=== PATIENT | male | born 1990 | race Caucasian/White ===

== ENCOUNTER 2019-03-12 09:52 | Emergency (ER) | payer OTHER, SELFPAY ==
[2019-03-12 09:57] VITALS: BP 148/87; PULSE 88; RESP 16; TEMP 36.6; O2SAT 98
--- NOTE | 2019-03-12 10:13 | ED.GENADUL_ITS ---
Discharge Plan Disposition Patient Disposition: HOME Condition: Good Discharge Details Chief Complaint: Orthopedic Clinical Impression: Sprain of wrist, right Primary Care Provider: [facility] Provider: Belen Menendez Home Meds and New Rx's Prescriptions: No Action No Known Home Meds RF: 0 Discharge Instructions Instructions: Wrist Sprain (ED) Additional Instructions: Encourage rest, ice, elevation. Tylenol and ibuprofen as needed for discomfort. You may take 1000 mg of Tylenol every 6 hours as needed, 600 mg of Profen every 6 hours as needed. Please keep brace on while pain persists. If pain persists over the next 2 weeks please follow-up with primary care. If you develop new or worsening symptoms please seek care urgently once again. Stand Alone Forms: Work Release Discharge Data Discharge Date/Time-TO BE ENTERED AT DEPARTURE: 03/12/19 11:06 Medical Decision Making Patient is a 28-year-old [id number] male presents today with chief complaint of right wrist pain. He reports that yesterday, while pushing and pulling a pallet deepthi he had onset of discomfort on the ulnar side. Reports feeling a pop. However, it was not until after the cessation of his activity that he reports the pain greatly escalated. Reports that this was a work- related injury. States that this wrist has popped multiple times before but typically is not associated with continued pain. States that pain has persisted into today. Took Tylenol this morning. States that his work is very lifting intensive and that he is having difficulty performing his expected duties. On exam, I do not appreciate any swelling, ecchymosis, deformity. Wrist seems good range of motion, pain with palpation over the distal ulna. No ligamentous deficit is palpable. No snuffbox tenderness. Plan for imaging and augmentation with ibuprofen. If this is negative, will brace, encourage rice and discharged home with follow-up with primary if not improving. X-ray reviewed by myself and radiologist, no acute abnormalities are noted. Discussed these findings with the patient. Emelle wrist splint was applied. Encourage rest, ice, elevation. Advised follow-up if not improving in the next 1 to 2 weeks. All the questions and concerns were addressed and he is in agreement this plan. HPI General Mode of arrival: ambulatory . Date/Time Provider Initiated Documentation: 03/12/19 10:13 . Limitations to Documentation: no limitations . Information obtained by: patient, family and RN notes reviewed . History of Present Illness 28 year old M presents to the emergency department with the chief complaint of right wrist pain, described as moderate, Quality is described as aching, and is localized to the right and upper extremity. Patient reports no radiation. Patient started experiencing this day(s) (1) and it has been constant. Immobilization improves symptom(s), Movement worsens symptoms . Patient notes no other symptoms.. Patient did receive the following treatments prior to arrival, other (tylenol) Related Data Home Medications Medication Instructions Recorded Confirmed Unknown [No Known Home Meds] 03/12/19 03/12/19 Allergies Allergy/AdvReac Type Severity Reaction Status Date / Time cefaclor [From Ceclor] AdvReac Skin Rash Unverified 03/12/19 10:00 General Stated Complaint: Orthopedic ASH: 4 Review of Systems Constitutional Reports as per HPI, Denies chills, Denies fever(s), Denies headache(s) and Denies weakness ENT Denies headache(s) Cardiovascular Reports as per HPI Respiratory Reports as per HPI and Denies cough Musculoskeletal Reports as per HPI and Denies tingling Integumentary/Breasts Reports as per HPI, Denies rash and Denies wounds Neurologic Reports as per HPI, Denies headache(s), Denies tingling, Denies paresthesias and Denies weakness [facility] Social History Smoking/Tobacco Use Status: Never Alcohol Intake: never Substance use type: does not use Do you feel safe at home: Yes Do you feel safe in your relationship?: Yes Exam Const General: cooperative, healthy appearing, comfortable, no acute distress, well developed and well groomed Nutritional Appearance: average body habitus and well nourished Orientation: alert and awake Resp Effort & Inspection: normal respiratory effort, able to speak in complete sentences and no respiratory distress Cardio Rate: regular rate Rhythm: regular rhythm Skin General skin exam: scars (well healed incision consistent with repair of right boxer fracture) Lesions: no lesions Rashes: no rashes Trauma: no lacerations or abrasions Neuro General: alert and awake Cognition: normal cognition Speech: speech normal Gait: normal gait Motor: muscle tone normal throughout Sensory Exam: no sensory deficits noted and normal double simultaneous stimulation Extrem Right upper extremity: normal to inspection, full ROM, normal capillary refill, no joint enlargement, elbow/forearm Details: normal to inspection, normal ROM and distal pulses intact; no tenderness, no swelling, no ecchymosis, no crepitus and no deformity, wrist Details: normal to inspection, tenderness Location: of the distal ulna and of the dorsal wrist; not of the distal radius and not of the anatomic snuffbox, normal vascular exam and radial pulse present; no swelling, ROM abnormal, no unusual warmth, no abrasions, no lacerations, no ecchymosis, no crepitus and no deformity and hand Details: normal to inspection (wealed healed incision as above), normal capillary refill, neuromotor exam normal, neurosens ory exam normal (2 point intact), tendon exam normal, vascular exam Details: radial pulse present and normal capillary refill and normal ROM of fingers; no tenderness; no edema Psych Appearance: grossly normal and well kempt Mental Status: mental status grossly normal Speech and Movement: speech and movement normal Course Vital Signs Temperature 36.6 C 03/12/19 09:57 Pulse 88 03/12/19 09:57 Respiratory Rate 16 03/12/19 09:57 Blood Pressure 148/87 H 03/12/19 09:57 Pulse Oximetry 98 03/12/19 09:57 Temperature 36.6 C 03/12/19 09:57 Temperature Source Skin 03/12/19 09:57 Pulse 88 03/12/19 09:57 Respiratory Rate 16 03/12/19 09:57 Respiratory Effort Non-Labored 03/12/19 09:59 Blood Pressure 148/87 H 03/12/19 09:57 Blood Pressure Position Sitting 03/12/19 09:57 Pulse Oximetry 98 03/12/19 09:57 Oxygen Delivery Method Room Air 03/12/19 09:57 Oxygen Flow Rate 0 03/12/19 09:57 Pain Level 8 03/12/19 10:01 Comment 03/12/19 09:57
--- NOTE | 2019-03-12 10:32 | DI.RAD_ITS ---
SYMPTOM/DIAGNOSIS: TRAUMA RIGHT WRIST: No fracture or dislocation is seen. IMPRESSION: Negative right wrist.
[2019-03-12] MEDS: Ibuprofen 600 MG TAB PO (10:38)
[2019-03-12 11:06] VITALS: BP 148/87; PULSE 88; RESP 16; TEMP 36.6; O2SAT 98
== END 2019-03-12 11:06 | disposition home or self-care (01) ==
PROVIDERS: Emergency Provider Physician Assistant
DX: S63.501A Unspecified sprain of right wrist, initial encounter (principal); X50.9XXA Other and unspecified overexertion or strenuous movements or postures, initial encounter
CPT/HCPCS: 29125; 99283; 73110; L3908

== ENCOUNTER 2019-11-18 00:25 | Observation (INO) | payer MEDICAID, SELFPAY ==
[2019-11-18] VITALS (65 sets, daily range): BP systolic 109–158; BP diastolic 51–98; PULSE 65–114; RESP 11–27; TEMP 36.6; O2SAT 91–99
--- NOTE | 2019-11-18 | DI.MRI_ITS ---
EXAM: MR BRAIN WO/W CLINICAL HISTORY: occipital headache, diplopia. TECHNIQUE: Multiplanar multisequence MRI of the brain was performed. CONTRAST MATERIAL: IV Contrast: 20 ML of Dotarem contrast administered. COMPARISON: CT CT BRAIN NECK CTA from 11/18/2019 FINDINGS: VENTRICLES AND EXTRA AXIAL SPACES: Normal in size and morphology for the patient's age. HEMORRHAGE: None. CEREBRAL PARENCHYMA: No focus of restricted diffusion to suggest acute infarct. No space-occupying le dulce identified. MIDLINE SHIFT: None. BRAINSTEM/CEREBELLUM: Normal. CALVARIUM: Normal. ENHANCEMENT: No suspicious enhancement identified. The venous sinuses appear patent. VISUALIZED PARANASAL SINUSES/MASTOIDS: Mild mucous retention at the floors of the maxillary sinuses. Fluid in the inferior mastoid air cells. There is alberto bullosa of the left middle turbinate.. Orbits are unremarkable. Pituitary is normal in size. IMPRESSION: Mild chronic sinusitis and mild bilateral mastoid effusions. No acute abnormality.. DATA REPOSITORY:
--- NOTE | 2019-11-18 00:55 | ED.GENADUL_ITS ---
Discharge Plan Disposition Patient Disposition: [facility] INPATIENT Condition: Fair Discharge Details Chief Complaint: Headache Clinical Impression: Headache, Diplopia, Vertigo Primary Care Provider: Gato Astudillo ED Provider: Dionisio Blevins Home Meds and New Rx's Prescriptions: No Action No Known Home Meds RF: 0 Medical Decision Making Patient with acute onset of posterior headache with associated vertigo and diplopia. NIH stroke scale of 0 but has slight disconjugate gaze. Stroke alert called. Concern for vertebral artery dissection or posterior circulation stroke/bleed. IV established. Noncontrast head CT as well as CTA of head and neck ordered. Laboratory studies sent. Fluids and morphine ordered. 02:10 -patient feeling better on return from CT. Continues to be mildly hypertensive. Labs significant for potassium 2.6 which will be replaced IV. Neurologic exam is unchanged. Still has disconjugate gaze but extraocular muscles are intact. Still sees double. Otherwise still has an NIH scale of 0. Call placed to [facility] to discuss with neurology. Images sent. Preliminary read by radiology is negative noncontrast CT and normal CTA head and neck. 02:35 - Patient discussed with neuro team at [facility]. Images were available for them to review. No acute emergent intervention needed given negative CTA of head and neck. Recommend admission with neuro checks and MRI of the brain today. Specifically asked whether lumbar puncture or MRV indicated and these were both felt to not be necessary. Case discussed with hospitalist here. Patient seen by hospitalist here. Patient with double vision and slight misalignment of eyes for hospitalist. However, double vision persists in right eye with left eye closed. Double vision resolves with right eye closed. There is no evidence of right eye trauma. The pupils are equal and reactive. The extraocular muscles are intact without painful movement. There is no scleral or conjunctival injection. Visual acuity is 2025 in both eyes with near Snellen chart. Fairly decent view of the right fundi obtained by me and no obvious abnormalities. At this point unclear etiology of symptoms. 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 We will plan admission with neuro checks, MRI and hopefully neurology evaluation later today. I did speak to the patient's with his permission to give her an update in the plan. Patient continues to feel better in regards to pain. No new or changing neurologic symptoms. Lab Data Lab results reviewed: Yes I reviewed the patient's lab results. HPI General Mode of arrival: EMS . Date/Time Provider Initiated Documentation: 11/18/19 00:43 . Limitations to Documentation: no limitations . Information obtained by: patient and RN notes reviewed . HPI Narrative: Patient presents to ED with severe posterior headache. Patient reports that he went to bed around 22:00. He noted some posterior neck discomfort at that time but nothing else. Woke up at 2315 with worse neck pain, reflux, sharp stabbing pain in the back of the head, dizziness and double vision. He is able to ambulate but feels weak all over and unsteady. He took Tylenol without relief and called EMS. On arrival here reports continued dizziness and diplopia with stabbing pain in the back of his head and neck. He was given Zofran by EMS so his nausea and reflux is better. He has headaches but not frequently and nothing like this. Denies trauma. Denies illness. Denies past medical history or medications. Related Data Home Medications Medication Instructions Recorded Confirmed Unknown [No Known Home Meds] 03/12/19 11/18/19 Allergies Allergy/AdvReac Type Severity Reaction Status Date / Time cefaclor [From Ceclor] AdvReac Skin Rash Unverified 03/12/19 10:00 General Stated Complaint: Headache ASH: 3 Review of Systems Narrative: 04/26 Review of Systems completed and is negative except as stated above in HPI (Systems reviewed: Const, Eyes, ENT, Resp, CV, GI, , MSK, Skin, Neuro) PFSH Medical History Decreased hearing of left ear (Chronic) Surgical History No significant past surgical history (Acute) Social History Smoking/Tobacco Use Status: Never Alcohol Intake: never Substance use type: does not use Do you feel safe at home: Yes Do you feel safe in your relationship?: Yes Exam Narrative Exam Narrative: Vitals: Afebrile. Elevated blood pressure. Normal heart rate and room air pulse oximetry. Const: WDWN male who appear uncomfortable and diaphoretic. HEENT: NC/AT. Normal facial exam. Eyes: Normal conjunctiva and sclera. PERRL and EOMI. Mild dysconjugate gaze. No nystagmus. Reports diplopia with all gazes. Neck: Supple. Trachea midline. Lungs: Normal respiratory effort. Cor: Good radial pulses. GI: Soft. NT/ND. No guarding or rebound. Neuro: A+O x 3. Normal speech, mentation. Cranial nerves II - XII grossly intact (decreased hearing on left is chronic) No gross motor or sensory deficit. 5/5 strength. No ataxia. Normal FTN. Ext: No C/C/E. Skin: Cool, clammy, diaphoretic. Course Vital Signs Vital signs: Vital Signs Temperature 97.8 F 11/18/19 00:27 Pulse 87 11/18/19 00:27 Respiratory Rate 16 11/18/19 00:27 Blood Pressure 158/98 H 11/18/19 00:27 Pulse Oximetry 97 11/18/19 00:27 Temperature 97.8 F 11/18/19 00:27 Pulse 87 11/18/19 00:27 Respiratory Rate 16 11/18/19 00:27 Respiratory Effort 11/18/19 00:30 Blood Pressure 158/98 H 11/18/19 00:27 Pulse Oximetry 97 11/18/19 00:27 Oxygen Delivery Method Room Air 11/18/19 00:27 Oxygen Flow Rate 0 11/18/19 00:27 Pain Level 7 11/18/19 00:30 Critical Care Time Critical Care Time Critical Care Time: Yes Total Critical Care Time: 60 Attestation: Upon my evaluation, this patient had a high probability of imminent or life-threatening deterioration, which required my direct attention, intervention, and personal management. I have personally provided minutes of critical care time exclusive of time spent on separately billable procedures. Time includes review of laboratory data, radiology results, discussion with consultants, and monitoring for potential decompensation.
[2019-11-18 01:01] LABS: Abs Immature Grans 0.05 k/cumm (0.0-0.09); Absolute Basophil Count 0.06 k/cumm (0.0-0.2); Absolute Lymphocyte Count 6.13 k/cumm (1.2-3.4); Absolute Monocyte Count 1.12 k/cumm (0.11-0.7); Basophils % 0.5; Eosinophils % 3.4; HCT 42.8 % (40.0-50.0); HGB 14.6 g/dL (13.5-17.5); Immature Grans % 0.4 %; Lymphocytes % 49.1; Mean Corp. HGB Concentration 34.1 g/dL (32.0-36.0); Mean Corpuscular Hemoglobin 27.9 pg (27.0-33.0); Mean Corpuscular Volume 81.8 fL (80-95); Mean Platelet Volume 9.5 fL (8.0-11.0); Neutrophils % 37.6; Platelet Count 310 x1000/uL (130-400); RBC 5.23 m/cumm (4.50-6.00); RBC Distribution Width 12.7 % (11.8-14.1); White Blood Cell Count 12.49 k/cumm (4.4-10.8)
[2019-11-18 01:03] LABS: Absolute Eosinophil Count 0.42 k/cumm (0.0-0.7)
--- NOTE | 2019-11-18 01:03 | DI.CT_ITS ---
EXAM: CT BRAIN NECK CTA CLINICAL HISTORY: posterior headache, vertigo, diplopia. TECHNIQUE: Imaging Protocol: Axial CT angiography was performed with multi-slice acquisition and mu lti-planar and/or 3D reconstructions. CONTRAST MATERIAL: Intravenous: Omnipaque 350 Contrast volume:85 ml COMPARISON: No exams were available for comparison FINDINGS: CT Head W/O: Ventricles and Extra axial spaces: Normal in size and morphology for the patient's age. Hemorrhage: None. Cerebral parenchyma: Normal. Midline shift: None. Brainstem/Cerebellum: Normal. Calvarium: Normal. Visualized Paranasal sinuses/Mastoids: There is a mild amount of fluid in the mastoid air cells. No bony destruction is seen. There is mild mucosal thickening at the floor of the maxillary sinuses as well as some mucosal thickening of the ethmoid sinuses. Elida bullosa is noted of the left middle t urbinate.. Soft Tissues: Unremarkable. CTA Brain W: Internal Carotid Arteries: Petrous: Normal. Cavernous: Normal. Cerebral: Normal. Middle Cerebral Arteries: Right: No aneurysm, occlusion or significant stenosis. Left: No aneurysm, occlusion or significant stenosis. Anterior Cerebral Arteries: Right: No aneurysm, occlusion or significant stenosis. Left: No aneurysm, occlusion or significant stenosis. Posterior cerebral Arteries: Right: No aneurysm, occlusion or significant stenosis. Left: No aneurysm, occlusion or significant stenosis. Vertebral Arteries: Right: No aneurysm, occlusion or significant stenosis. Left: No aneurysm, occlusion or significant stenosis. Basilar Artery: No aneurysm, occlusion or significant stenosis. CTA Neck W: Common Carotid: Right: No aneurysm, occlusion or significant stenosis. Left: No aneurysm, occlusion or significant stenosis. External Carotid: Right: No aneurysm, occlusion or significant stenosis. Left: No aneurysm, occlusion or significant stenosis. Internal Carotid: Right: No aneurysm, occlusion or significant stenosis. Left: No aneurysm, occlusion or significant stenosis. Vertebral Artery: Right: No aneurysm, occlusion or significant stenosis. Left: No aneurysm, occlusion or significant stenosis. Lung Apices: Normal. Bones: Normal. Soft Tissues: Normal. IMPRESSION: 1. Normal CTA examination of the [place]. 2. Mild chronic sinus disease. Mild bilateral mastoid effusions. No acute intracranial abnormality. . 3. Normal CTA examination of the neck. RADIATION DOSE DELIVERED: Total DLP DATA REPOSITORY: All CT scans at this facility are submitted to the National Radiology Data Registry (NRDR) Dose Index Registry (DIR) with the [employer] (ACR). RADIATION OPTIMIZATION: All CT scans at this facility use at least one of these dose optimization te chniques: automated exposure control; mA and/or kV adjustment per patient size (includes targeted exa ms where dose is matched to clinical indication); or iterative reconstruction.
[2019-11-18 01:10] LABS: Anion Gap 10.7 mmol/L (3-11); BUN 13 mg/dL (7-18); CO2 24.3 mmol/L (21.0-32.0); CREATININE 0.98 mg/dL (0.70-1.30); Chloride 101 mmol/L (98-107); Glucose 140 mg/dL (74-106); Sodium 136 mmol/L (136-145)
[2019-11-18 01:14] LABS: PTT Activated 20.6 sec (21.0-31.4); Prothrombin Time 10.1 sec (9.3-11.0)
[2019-11-18 01:17] LABS: Potassium 2.6 mmol/L (3.5-5.1)
[2019-11-18 01:23] LABS: Diff Comment Agrees w/ Instrument; RBC Morphology Normal
[2019-11-18] MEDS: MORPHine 10 MG/ML VIAL 2 MG IVP (01:25)
[2019-11-18] MEDS: Lactated Ringers 1,000 ML 125 ML IV (01:27)
[2019-11-18] MEDS: Normal Saline Flush 10 ML SYR IVP ×3 (01:27→12:29)
[2019-11-18] MEDS: Normal Saline - Diluent 50 ML VIAL IV (01:28)
[2019-11-18] MEDS: Omnipaque 350 MG/ML 100 ML BTL IJ (01:28)
[2019-11-18] MEDS: POTASSIUM CHLORIDE 10 MEQ/100 ML BAG 100 MEQ IVPB ×2 (01:43→02:01)
[2019-11-18 01:49] LABS: Magnesium 1.8 mg/dL (1.8-2.4)
--- NOTE | 2019-11-18 01:50 | DI.VRAD_ITS ---
PROCEDURE INFORMATION: Exam: CT Angiography Head Without And With Contrast Exam date and time: 11/18/2019 12:52 AM Age: 29 years old Clinical indication: Headache and vertigo and other: Diplopia; Patient HX: Posterior headache, diplopia, vertigo TECHNIQUE: Imaging protocol: Computed tomographic angiography of the head without and with intravenous contrast. 3D rendering: MIP and/or 3D reconstructed images were created by the technologist. Radiation optimization: All CT scans at this facility use at least one of these dose optimization techniques: automated exposure control; mA and/or kV adjustment per patient size (includes targeted exams where dose is matched to clinical indication); or iterative reconstruction. Contrast material: [id number]; Contrast volume: 85 ml; Contrast route: IV RAC 18G; Other technique: STROKE PROTOCOL was implemented. COMPARISON: No relevant prior studies available. FINDINGS: Anterior cerebral arteries: No occlusion or significant stenosis. No aneurysm. Right internal carotid artery: Intracranial segment is patent with no significant stenosis or occlusion. No aneurysm. Right middle cerebral artery: No occlusion or significant stenosis. No aneurysm. Right posterior cerebral artery: No occlusion or significant stenosis. No aneurysm. Right vertebral artery: No occlusion or significant stenosis. No aneurysm. Left internal carotid artery: Intracranial segment is patent with no significant stenosis. No aneurysm. Left middle cerebral artery: No occlusion or significant stenosis. No aneurysm. Left posterior cerebral artery: No occlusion or significant stenosis. No aneurysm. Left vertebral artery: No occlusion or significant stenosis. No aneurysm. Basilar artery: No occlusion or significant stenosis. No aneurysm. HEAD: Brain: Unremarkable. No acute intracranial hemorrhage. No significant white matter disease. No edema. Ventricles: Normal. No ventriculomegaly. Bones/joints: Unremarkable. No acute fracture. Sinuses: There is mucosal thickening in the ethmoid and maxillary sinuses. There is pneumatization of the bilateral middle turbinates. Mastoid air cells: There is mild fluid in the bilateral mastoid air cells. Soft tissues: Unremarkable. IMPRESSION: 1. No acute intracranial hemorrhage, mass effect or midline shift. 2. No large vessel occlusion. 3. Small bilateral mastoid air cell effusions. ASSESSMENT: ASPECTS ([place] Stroke Program Early CT Score) is 10. PROCEDURE INFORMATION: Exam: CT Angiography Neck Without And With Contrast Exam date and time: 11/18/2019 12:52 AM Age: 29 years old Clinical indication: Headache and vertigo and other: Diplopia; Patient HX: Posterior headache, diplopia, vertigo TECHNIQUE: Imaging protocol: Computed tomographic angiography of the neck without and with intravenous contrast. 3D rendering: MIP and/or 3D reconstructed images were created by the technologist. Radiation optimization: All CT scans at this facility use at least one of these dose optimization techniques: automated exposure control; mA and/or kV adjustment per patient size (includes targeted exams where dose is matched to clinical indication); or iterative reconstruction. Contrast material: [id number]; Contrast volume: 85 ml; Contrast route: IV RAC 18G; COMPARISON: No relevant prior studies available. FINDINGS: Right common carotid artery: No stenosis. No dissection or occlusion. Right internal carotid artery: No stenosis of the extracranial segment. No dissection or occlusion. Right external carotid artery: No occlusion or stenosis of the origin. Right vertebral artery: No stenosis. No dissection or occlusion. Left common carotid artery: No stenosis. No dissection or occlusion. Left internal carotid artery: No stenosis of the extracranial segment. No dissection or occlusion. Left external carotid artery: No occlusion or stenosis of the origin. Left vertebral artery: No stenosis. No dissection or occlusion. Bones/joints: No acute fracture. Soft tissues: Normal. No significant soft tissue swelling. IMPRESSION: No stenosis or occlusion. REFERENCES: NASCET CRITERIA. The degree of internal carotid artery stenosis is based on NASCET criteria. Normal is no stenosis. Mild is less than 50% stenosis. Moderate is 50-69% stenosis. Severe is 70% to 99% stenosis. Total occlusion is no detectable patent lumen. Dictated and Authenticated by: Sherron Tellez MD. Ordering:BIBIANA Nichole MD
--- NOTE | 2019-11-18 03:00 | HPE_ITS ---
Date of service: 11/18/19 Time of Service: 03:00 Assessment and Plan Assessment and plan (1) Headache: Status: Acute Assessment and plan: Headache with subjective monocular diplopia, and exotropia apparently unrelated to diplopia. I cannot explain the current constellation. Certainly binocular diplopia would raise concern for [employer] lesion but this does not seem to be the issue; on the other hand monocular diplopia would be potentially associated with ocular lesion (eg, lens displacement), but this does not appear to be the case and would not correlate with occipital CAMARA. Again, CAMARA with diplopia, and possible right 6th nerve lesion (manifesting as exotropia -- or is this incidental and pre-existent?) along with questionable ptosis (? 3rd nerve lesion) raise question of brainstem lesion, but imaging does not support this, and again one would expect the diplopia to be binocular. Suffice to say we do not have an explanation at present but will proceed with MRI in AM as per advice of neuro. The hypokalemia remains also unexplained, but in any case I do not see how to relate this to his primary presentation. Will replace and monitor. History of Present Illness History of Present Illness Chief Complaint: CAMARA Narrative: 29 male had slight neck pain prior to sleep. Then later awoke with heartburn, had drink of water, then began to cough, At this point had sudden onset occipital CAMARA associated with horizontal diplopia, and had single episode of vomiting thereafter. In ER findings of note for slight exotropia OD. CT head and CTA head and neck negative -- for bleed, aneurysm or dissection. ER discussed case with [facility] [place] neurolog[place] who could not provide a diagnosis but did not feel any further immediate w/u needed, but advised MRI in AM. Patient received 2 mh MS with moderate relief of CAMARA. Also noted potassium 2.6. Given 10 KCl IV. Review of Systems All systems reviewed & are unremarkable except as noted in HPI and below PFSH Medical History Decreased hearing of left ear (Chronic) Surgical History No significant past surgical history (Acute) Social History Smoking/Tobacco Use Status: Never Alcohol Intake: never Substance use type: does not use Do you feel safe at home: Yes Do you feel safe in your relationship?: Yes Meds Home Medications and Allergies Home Medications Medication Instructions Recorded Confirmed Type Unknown [No Known Home Meds] 03/12/19 11/18/19 History Allergies Allergy/AdvReac Type Severity Reaction Status Date / Time cefaclor [From Ceclor] AdvReac Skin Rash Unverified 03/12/19 10:00 Exam Narrative Exam Narrative: 150/89,85,11, 36.6, 99%. HEENT no signs trauma, questionably very slight ptosis OD, slight exotropia OD, pupils 6-7 mm and reactive, EOM intact (patient reports diplopia persists with monocular vision OD, none with monocular OS); no lens displacement noted and fundi benign, acuity 20/25 OU. Neck supple, lungs clear; heart RRR w/o MRG; abdomen soft and NT; extremities w/o edema, pulse 2+/=; neuro Ox3, CN exam as above , but supplemented with no facial asymmetry, intact touch sensation,tongue protrudes midline, motor 5/5 Results Labs Result diagrams: 11/18/19 00:34 11/18/19 00:34 Labs: Laboratory Results - last 24 hr 11/18/19 11/18/19 11/18/19 00:34 00:34 00:34 WBC 12.49 H RBC 5.23 Hgb 14.6 Hct 42.8 MCV 81.8 MCH 27.9 MCHC 34.1 RDW 12.7 Plt Count 310 MPV 9.5 Immature Gran % 0.4 Neutrophils % 37.6 Lymphocytes % 49.1 Monocytes % 9.0 Eosinophils % 3.4 Basophils % 0.5 Absolute Neutrophils 4.70 Absolute Lymphocytes 6.13 H Absolute Monocytes 1.12 H Absolute Eosinophils 0.42 Absolute Basophils 0.06 Differential Comment Agrees w/ instrument RBC Morphology Normal PT 10.1 INR 1.0 APTT 20.6 L Sodium 136 Potassium 2.6 L* Chloride 101 Carbon Dioxide 24.3 Anion Gap 10.7 BUN 13 Creatinine 0.98 Estimated GFR/1.73 m2 >= 60.00 Glucose 140 H Calcium 9.0 Magnesium 11/18/19 00:34 WBC RBC Hgb Hct MCV MCH MCHC RDW Plt Count MPV Immature Gran % Neutrophils % Lymphocytes % Monocytes % Eosinophils % Basophils % Absolute Neutrophils Absolute Lymphocytes Absolute Monocytes Absolute Eosinophils Absolute Basophils Differential Comment RBC Morphology PT INR APTT Sodium Potassium Chloride Carbon Dioxide Anion Gap BUN Creatinine Estimated GFR/1.73 m2 Glucose Calcium Magnesium 1.8 Last Vital Signs Temp 36.6 C 11/18/19 00:27 Pulse 85 11/18/19 02:33 Resp 11 L 11/18/19 02:33 BP 150/89 H 11/18/19 02:33 Pulse Ox 99 11/18/19 02:33 COVID-19 Screening Traveled to [place] from one of the affected countries or regions?: NO Recent travel in the [place] within the last 14 days?: No Recent out of the country travel within the last 14 days?: No Exposure or possible exposure to illness during travel?: No Had IN PERSON contact w/suspected or confirmed C-19 person: No Have you had the following symptoms in the past few days?: No Symptoms noted since travel?: No Symptoms
[2019-11-18] MEDS: Potassium Chloride 20 MEQ TABCR PO (03:53)
[2019-11-18] MEDS: POTASSIUM CHLORIDE/0.9% NACL 1,000 ML 100 MEQ IV (04:17)
[2019-11-18] MEDS: Ondansetron 4 MG/2 ML VIAL IVP ×2 (04:35→11:55)
[2019-11-18 06:53] LABS: Anion Gap 8.3 mmol/L (3-11); CO2 27.7 mmol/L (21.0-32.0); Chloride 101 mmol/L (98-107); Potassium 4.7 mmol/L (3.5-5.1); Sodium 137 mmol/L (136-145)
[2019-11-18 10:07] LABS: TSH (W/Ref FT4) 2.48 uIU/mL (0.36-3.74)
--- NOTE | 2019-11-18 10:15 | PDOC.CMIN ---
- If Service Date Differs Date of service: 11/18/19 Time of Service: 10:15 Care Management Initial Assess REASON FOR HOSPITALIZATION:: Headache and Diplopia after a coughing and vomiting spell PAST MEDICAL HISTORY/PAST SURGICAL HISTORY:: Decreased hearing left ear PREVIOUS FUNCTIONAL STATUS/SOCIAL/FAMILY SUPPORTS:: Frank lives her in [facility] with his spouse and two children 5 and 3. He works fulltime in [employer] and his spouse works in daycare. He is indepedent in all ADL's and has no services at home. CURRENT FUNCTIONAL STATUS:: Frank is asleep when CM enters the room he awakes easily and is engaged in assessment with CM. Frank is able to describe events that led to admission he states he is feeling a little better today and he has been able to rest. He is having an MRI this afternoon and he understands the plan of care. ADVANCE DIRECTIVES:: None on file he declines at this time however understands he can contact to complete them in the future if he chooses. Has patient been provided with information about the portal?: Yes Did the patient sign up for the portal?: No (Declines ) CODE STATUS:: Full Code INSURANCE COVERAGE / FINANCIAL ISSUES:: Medicaid CURRENT HOME/COMMUNITY SERVICES/EQUIPMENT:: No current services anticipate he will not need any at time of discharge. PRIMARY CARE PHYSICIAN:: Raya Baker [facility] POTENTIAL DISCHARGE NEEDS:: Follow up with primary care as directed PATIENT/FAMILY EDUCATION NEEDS:: Discharge education, limitations and follow up plan of care including ask me three and self management ANTICIPATED BARRIERS TO DISCHARGE:: No identified barriers TRANSPORTATION:: Via private car with spouse at time of discharge PLAN:: Frank is having an MRI today and neurology consult. Anticipate he will be discharged when medically ready and not need any additional services. He states he has a good relationship with his primary care and feels comfortable accessing PCP services. CM will continue to follow discharge planning and coordination of needs.
[2019-11-18] MEDS: oxyCODONE 5 mg/Acetaminophen 325 mg TAB PO ×2 (11:59→17:03)
--- NOTE | 2019-11-18 12:03 | W.PM.PROGNOT ---
Date of Service Date of service: 11/18/19 Time of Service: 12:03 Objective Objective Clinical Data: Abnormal lab results 11/18/19 11/18/19 11/18/19 Range/Units 00:34 00:34 00:34 WBC 12.49 H (4.4-10.8) k/cumm Absolute Lymphocytes 6.13 H (1.2-3.4) k/cumm Absolute Monocytes 1.12 H (0.11-0.7) k/cumm APTT 20.6 L (21.0-31.4) sec Potassium 2.6 L* (3.5-5.1) mmol/L Glucose 140 H (74-106) mg/dL Hemoglobin A1c (3.8-5.6) % 11/18/19 Range/Units 00:34 WBC (4.4-10.8) k/cumm Absolute Lymphocytes (1.2-3.4) k/cumm Absolute Monocytes (0.11-0.7) k/cumm APTT (21.0-31.4) sec Potassium (3.5-5.1) mmol/L Glucose (74-106) mg/dL Hemoglobin A1c 6.0 H (3.8-5.6) % Vital Signs Temperature 36.6 C 11/18/19 10:06 Temperature Source Temporal Artery Scan 11/18/19 10:06 Pulse 97 H 11/18/19 10:06 Pulse 109 H 11/18/19 03:50 Respiratory Rate 13 11/18/19 10:06 Respiratory Effort 11/18/19 04:25 Respiratory Depth Normal 11/18/19 04:25 Respiratory Pattern Normal 11/18/19 04:25 Blood Pressure 109/51 L 11/18/19 10:06 Blood Pressure Mean 97 11/18/19 04:25 Pulse Oximetry 96 11/18/19 10:06 Oxygen Delivery Method Room Air 11/18/19 10:06 Oxygen Flow Rate 0 11/18/19 10:06 Pain Level 5 11/18/19 11:59 Intake & Output 11/17/19 11/18/19 11/18/19 23:59 11:59 23:59 Intake Total 566.667 / 566.667 Output Total 1600 / 1600 Balance -1033.333 / -1033.333 Weight 113.398 kg Intake: IV 446.667 / 446.667 Oral 120 / 120 Output: Urine 1000 / 1000 Emesis 600 / 600 Other: Urine Color Yellow Urine Appearance Clear Voiding Methods Urinal Laboratory Results WBC 12.49 k/cumm (4.4-10.8) H 11/18/19 00:34 RBC 5.23 m/cumm (4.50-6.00) 11/18/19 00:34 Hgb 14.6 g/dL (13.5-17.5) 11/18/19 00:34 Hct 42.8 % (40.0-50.0) 11/18/19 00:34 MCV 81.8 fL (80-95) 11/18/19 00:34 MCH 27.9 pg (27.0-33.0) 11/18/19 00:34 MCHC 34.1 g/dL (32.0-36.0) 11/18/19 00:34 RDW 12.7 % (11.8-14.1) 11/18/19 00:34 Plt Count 310 x1000/uL (130-400) 11/18/19 00:34 MPV 9.5 fL (8.0-11.0) 11/18/19 00:34 Immature Gran % 0.4 % 11/18/19 00:34 Neutrophils % 37.6 11/18/19 00:34 Lymphocytes % 49.1 11/18/19 00:34 Monocytes % 9.0 11/18/19 00:34 Eosinophils % 3.4 11/18/19 00:34 Basophils % 0.5 11/18/19 00:34 Absolute Neutrophils 4.70 k/cumm (1.2-6.7) 11/18/19 00:34 Absolute Lymphocytes 6.13 k/cumm (1.2-3.4) H 11/18/19 00:34 Absolute Monocytes 1.12 k/cumm (0.11-0.7) H 11/18/19 00:34 Absolute Eosinophils 0.42 k/cumm (0.0-0.7) 11/18/19 00:34 Absolute Basophils 0.06 k/cumm (0.0-0.2) 11/18/19 00:34 Differential Comment Agrees w/ instrument 11/18/19 00:34 RBC Morphology Normal 11/18/19 00:34 PT 10.1 sec (9.3-11.0) 11/18/19 00:34 INR 1.0 (0.9-1.1) 11/18/19 00:34 APTT 20.6 sec (21.0-31.4) L 11/18/19 00:34 Sodium 137 mmol/L (136-145) 11/18/19 06:10 Potassium 4.7 mmol/L (3.5-5.1) D 11/18/19 06:10 Chloride 101 mmol/L (98-107) 11/18/19 06:10 Carbon Dioxide 27.7 mmol/L (21.0-32.0) 11/18/19 06:10 Anion Gap 8.3 mmol/L (3-11) 11/18/19 06:10 BUN 13 mg/dL (7-18) 11/18/19 00:34 Creatinine 0.98 mg/dL (0.70-1.30) 11/18/19 00:34 Estimated GFR/1.73 m2 >= 60.00 (mL/min/1.73m2) 11/18/19 00:34 Glucose 140 mg/dL (74-106) H 11/18/19 00:34 Hemoglobin A1c 6.0 % (3.8-5.6) H 11/18/19 00:34 Calcium 9.0 mg/dL (8.5-10.1) 11/18/19 00:34 Magnesium 1.8 mg/dL (1.8-2.4) 11/18/19 00:34 TSH 2.48 uIU/mL (0.36-3.74) 11/18/19 00:34
[2019-11-18] MEDS: Gadoterate meglumine 20 ML VIAL IVP (12:30)
--- NOTE | 2019-11-18 15:50 | NCONE_ITS ---
Date of service: 11/18/19 Time of Service: 15:50 Assessment and Plan Assessment and plan (1) Migraine headache without aura: Status: Acute (2) Monocular diplopia of right eye: Status: Acute Assessment and plan: Mr. Hsu is a 29 year-old man with a history of m igraine headaches without aura who was admitted with worst headache of his life associated with right eye monocular diplopia and transient unilateral ptosis. His neurological exam is normal except for functional sensory changes. He has right eye monocular diplopia which I have no neurological explanation. I recommend outpatient optometry evaluation. Otherwise, he had an extensive negative work-up for secondary headache. He has remained afebrile. No LP was performed but given significant improvement in his symptoms, I don't think it is necessary at this time. His symptoms are consistent with migraine without aura. Ptosis is not an uncommon part of migraine. His baseline headache frequency does not warrant migraine prevention, however, if his headaches increase, I would start Magnesium 400mg HS. I would also consider a sleep study at that point as he does have a few risk factors. For now, we discussed using Compazine 5-10mg q8hr +/- ibuprofen for rescue therapy. ADRs were discussed including acute dystonic reaction. We also discussed the risk of MOH with ibuprofen use. I gave him the number to the neurology clinic which he should call if he runs into any difficulty. He should follow-up in neurology clinic in 4-6 weeks. History of Present Illness History of Present Illness Chief Complaint: headache Narrative: Handedness: right. HPI: Mr. Hsu is a 29 year-old healthy young man. He was admitted late last night/early this am after presenting with worse headache of his life. He apparently had not been feeling well when he went to bed around 2200. He woke up 1 hour later with a severe bilateral posterior headache, non-specific dizziness, nausea, and new onset diplopia. He presented to the ER where on exam he was noted to have a right exotropia and possible unilateral ptosis (not sure what side). He had MONOCULAR horizontal diplopia in the right eye only. He has no diplopia with left eye open. Of note, today he continues to note diplopia but also a patch of blurred vision in the right eye only. He underwent an extensive work-up in the ER. His labs were significant for K 2.6 --> 4.7, WBC 12.49, and glucose 140. He had a CTH, CTA head, CTA neck, and MRI brain w/wo with thin cuts through the brainstem. I personally reviewed all of these images. They were unremarkable except for noted sinusitis and bilateral mastoid effusions, as per radiology. His headache and nausea have both resolved however he currently notes return of a low grade posterior headache. He has been treated with oxycodone and morphine both of which helped his headache but caused unwanted side effects. His nausea was relieved with ondansetron. He has headaches since the age of 15. At baseline, he has about one headaches per week which is usually over the right occiput. This variably responds to ibuprofen depending on how quickly he takes it. He has family history of migraines in a maternal great-grandfather as well as migraine-equivalents in his mother, sister, and maternal aunt (motion/car sickness). He drinks 2 cups of coffee per day and occasional sodas. He sleeps 6-8hours per night. He has no difficulty falling asleep but wakes up frequently during the nights. He snores. He does not feel rested. He has no history of TBIs. 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 Consults Requesting physician: Ras Bailey Review of Systems All systems reviewed & are unremarkable except as noted in HPI and below PFSH Medical History Decreased hearing of left ear (Chronic) Surgical History No significant past surgical history (Acute) Social History Smoking/Tobacco Use Status: Never Alcohol Intake: never Substance use type: does not use Do you feel safe at home: Yes Do you feel safe in your relationship?: Yes Visit Medication and Allergies Active Medications Generic Name Dose Route Start Last Admin Trade Name Freq PRN Reason Stop Dose Admin Dimethicone/Zinc Oxide 0 gm 11/18/19 03:29 Adelfo Protect Cream TP PRN PRN Gadoterate Meglumine 20 ml 11/18/19 12:30 11/18/19 12:30 Dotarem IVP 12/18/19 23:59 20 ml DIRECTED AYLIN Administration IV Miscellaneous Supplies 1 each 11/18/19 01:00 IV DIRECTED AYLIN Morphine Sulfate 2 - 4 mg 11/18/19 03:35 11/18/19 03:53 IVP 4 mg Q3H PRN PRN Administration Ondansetron HCl 4 mg 11/18/19 03:35 11/18/19 11:55 Zofran Injection IVP 4 mg Q4H PRN PRN Administration Oxycodone/Acetaminophen 1 - 2 tab 11/18/19 11:36 11/18/19 11:59 Percocet 5 Mg/325 Mg PO 1 tab Q4H PRN PRN Administration Sodium Chloride 0 ml 11/18/19 00:52 11/18/19 04:17 Saline Flush 10 Ml Syringe IVP 10 ml PRN PRN Administration Sodium Chloride 50 ml 11/18/19 01:30 11/18/19 01:28 Saline 50 Ml Diluent Vial IV 50 ml .FOR DI USE AYLIN Administration Sodium Chloride 10 ml 11/18/19 12:28 11/18/19 12:29 Saline Flush 10 Ml Syringe IVP 10 ml PRN PRN Administration Allergies cefaclor [From [facility]] Adverse Reaction (Unverified 03/12/19 10:00) Skin Rash Exam Narrative Exam Narrative: Physical Exam: Gen: Patient of apparent stated age, NAD Head and face: no facial or cranial abnormalities Neck: Supple, no meningismus, no occipital tenderness CV: + S1, S2, RRR, no murmur Resp: CTA B/L Abd: soft, nontender, nondistended Ext: No edema. No clubbing or cyanosis. No bony deformity. Neuro Exam: Language: fluency, naming, repetition, and comprehension intact; Mental Status: AAOx3, current events intact, fund of knowledge intact; Speech: no dysarthria Cranial nerves: Funduscopy: not performed CN II: visual pulliam intact CN III, IV, : extraocular movements intact, no nystagmus, pupils symmetric and reactive to light; right monocular diplopia CN V: face sensation intact reduced to LT and PP in R V1 only; vibration was split across the forehead; CN VII: no facial asymmetry noted CN VIII: hearing intact bilaterally CN IX, X: palate rises symmetrically CN XI: trapezius/SCM 5/5 bilaterally CN XII: protrudes tongue symmetrically Sensory: intact to LT, PP, vibration, and joint position in all extremities Motor: bulk and tone intact. Fine motor movements intact bilaterally. No prona tor drift. Strength 5/5 throughout including the deltoids, biceps, triceps, wrist extensors, hip flexors, knee flexors, knee extensors, ankle flexors, and ankle extensors. Reflexes: 2+ at the biceps, triceps, brachioradialis, patella, and achilles tendons bilaterally; toes down going bilaterally; Coordination: FTN and HTS intact bilaterally Gait: normal gait; Results Last Vital Signs Temp 36.6 C 11/18/19 10:06 Pulse 97 H 11/18/19 10:06 Resp 13 11/18/19 10:06 BP 109/51 L 11/18/19 10:06 Pulse Ox 96 11/18/19 10:06 Labs Result diagrams: 11/18/19 00:34 11/18/19 06:10 Labs: Laboratory Results - last 24 hr 11/18/19 11/18/19 11/18/19 00:34 00:34 00:34 WBC 12.49 H RBC 5.23 Hgb 14.6 Hct 42.8 MCV 81.8 MCH 27.9 MCHC 34.1 RDW 12.7 Plt Count 310 MPV 9.5 Immature Gran % 0.4 Neutrophils % 37.6 Lymphocytes % 49.1 Monocytes % 9.0 Eosinophils % 3.4 Basophils % 0.5 Absolute Neutrophils 4.70 Absolute Lymphocytes 6.13 H Absolute Monocytes 1.12 H Absolute Eosinophils 0.42 Absolute Basophils 0.06 Differential Comment Agrees w/ instrument RBC Morphology Normal PT 10.1 INR 1.0 APTT 20.6 L Sodium 136 Potassium 2.6 L* Chloride 101 Carbon Dioxide 24.3 Anion Gap 10.7 BUN 13 Creatinine 0.98 Estimated GFR/1.73 m2 >= 60.00 Glucose 140 H Hemoglobin A1c Calcium 9.0 Magnesium TSH 11/18/19 11/18/19 11/18/19 00:34 00:34 00:34 WBC RBC Hgb Hct MCV MCH MCHC RDW Plt Count MPV Immature Gran % Neutrophils % Lymphocytes % Monocytes % Eosinophils % Basophils % Absolute Neutrophils Absolute Lymphocytes Absolute Monocytes Absolute Eosinophils Absolute Basophils Differential Comment RBC Morphology PT INR APTT Sodium Potassium Chloride Carbon Dioxide Anion Gap BUN Creatinine Estimated GFR/1.73 m2 Glucose Hemoglobin A1c 6.0 H Calcium Magnesium 1.8 TSH 2.48 11/18/19 06:10 WBC RBC Hgb Hct MCV MCH MCHC RDW Plt Count MPV Immature Gran % Neutrophils % Lymphocytes % Monocytes % Eosinophils % Basophils % Absolute Neutrophils Absolute Lymphocytes Absolute Monocytes Absolute Eosinophils Absolute Basophils Differential Comment RBC Morphology PT INR APTT Sodium 137 Potassium 4.7 D Chloride 101 Carbon Dioxide 27.7 Anion Gap 8.3 BUN Creatinine Estimated GFR/1.73 m2 Glucose Hemoglobin A1c Calcium Magnesium TSH
--- NOTE | 2019-11-18 17:14 | W.PM.DS.N ---
Date of service: 11/18/19 Time of Service: 17:14 DS: Diagnosis Discharge Diagnosis (1) Headache: Status: Acute Asessment and Plan: probable acute exacerbation of migraine headaches, associated w/ acute diplopia symptoms. No evidence of central neurologic defects. Negative CT and CTA of head and neck. Negative MRI of brain except for evidence of some fluid in mastoids and sinusitis changes. Patient advised to follow up with opthalmology or optometry in next couple weeks. Follow up in the neurology clinic in 4 to 6 weeks. Patient advised to use compazine 5 to 10 mg BID prn nausea or migraine headaches. He is to begin magnesium oxide 400 mg HS for prevention. Discharge Plan Disposition Patient Disposition: HOME Condition: Improving Discharge Details Chief Complaint: Headache Clinical Impression: Headache, Diplopia, Vertigo Reason For Visit: HEADACHE, DIPLOPIA Admit Date/Time: 11/18/19 03:29 Admit Provider: Ras Bailey Attending Provider: Ras Bailey Primary Care Provider: Gato Astudillo ED Provider: Dionisio Blevins [facility] Course Hospital Course: See Dr. Bailey's admission H&P for details. 29-year-old male with a history of migraine headaches presents emergency department with acute onset of severe occipital headache associated with symptoms of right monocular horizontal diplopia. This occurred after episode of severe paroxysm of coughing and nausea and vomiting. No history of fevers, shortness of breath, chest discomfort. Patient did have some slight neck pain prior to his episode of paroxysmal coughing and severe occipital headache. Patient underwent work-up in the emergency department CT of the head and CTA of the head and neck. This showed normal examination of [place] and normal vessels of the neck. He has some mild chronic sinus disease including mild bilateral mastoid effusions. No acute intracranial abnormalities. He was treated with antiemetics and narcotic analgesics and admitted to intensive care unit overnight. ER staff discussed his case with [facility] neurology who did not recommend a spinal tap but recommended that he be observed overnight and to obtain an MRI of the brain in the morning. MRI of the brain was performed today and showed mild chronic sinusitis and mild bilateral mastoid effusions no acute abnormalities. Neurology consultation was obtained with Dr. Carrie Berg who cannot explain his ophthalmologic symptoms. She feels it is not due to any central nervous system abnormality. She recommended that he treat his migraines more aggressively and get an outpatient optometry or ophthalmology examination. She also recommended that he consider a polysomnogram as an outpatient. She indicated that he can be discharged home and recommend as needed use of Compazine for headaches or nausea and to start on magnesium oxide for migraine prophylaxis. She indicated she was to see him in the neurology clinic in 4 to 6 weeks. Home Meds and New Rx's Prescriptions: New magnesium oxide 500 mg tablet 500 mg PO QHS Qty: 30 RF: 1 prochlorperazine maleate [Compazine] 5 mg tablet 5 mg PO BID PRNQty: 20 RF: 0 Discharge Instructions Instructions: Acute Headache (DC) Additional Instructions: Follow-up with Dr. Carrie Berg in the neurology clinic in 4 to 6 weeks. Call the office for an appointment. [phone] Stand Alone Forms: Nursing Discharge Form Referrals: Gato Astudillo [Primary Care Provider] - (follow up in 1 to 2 weeks) Carrie Berg MD [[facility] STAFF PHYSICIAN] - (follow up in 4 to 6 weeks) Activity:: Activity as Tolerated Equipment/Supplies:: No Equipment Needed Diet:: Normal Diet Discharge Orders Discharge Orders: Discharge Order (Routine); Ordered 11/18/19 Ordered By: Luis Sanchez Discharge Data Discharge Date/Time-TO BE ENTERED AT DEPARTURE: 11/18/19 17:55 Discharge Comment: home, driving DS: Summary Status at Discharge Functional status at discharge: independent ambulation Overall status at discharge: patient is back to baseline Mental Status: mental status grossly normal Speech and Movement: speech and movement normal Mood: congruent mood Affect: normal affect Exam Narrative Exam Narrative: Alert and oriented person place time circumstance. HEENT is unremarkable. No facial asymmetry normal facial mimetic muscle movement. No abnormality of the cranial nerves. Pupils Mydriasis but reactive to direct and consensual light. Full extraocular motion intact.Normal strength and range of motion in upper and lower extremities. No sensory loss over the face. Psych Mental Status: mental status grossly normal Speech and Movement: speech and movement normal Mood: congruent mood Affect: normal affect DS: Data Vitals/I&O Vitals and I&O: Vital Signs Temperature 36.6 C 11/18/19 10:06 Temperature Source Temporal Artery Scan 11/18/19 10:06 Pulse 97 H 11/18/19 10:06 Pulse Rhythm Regular 11/18/19 13:29 Pulse 109 H 11/18/19 03:50 Respiratory Rate 13 11/18/19 10:06 Respiratory Effort Non-Labored 11/18/19 13:29 Respiratory Depth Normal 11/18/19 13:29 Respiratory Pattern Normal 11/18/19 13:29 Blood Pressure 109/51 L 11/18/19 10:06 Blood Pressure Mean 97 11/18/19 04:25 Pulse Oximetry 96 11/18/19 10:06 Oxygen Delivery Method Room Air 11/18/19 10:06 Oxygen Flow Rate 0 11/18/19 10:06 Pain Level 3 11/18/19 17:03 Intake & Output 11/17/19 11/18/19 11/18/19 23:59 11:59 23:59 Intake Total 566.667 / 566.667 Output Total 1600 / 1600 Balance -1033.333 / -1033.333 Weight 113.398 kg Intake: IV 446.667 / 446.667 Oral 120 / 120 Output: Urine 1000 / 1000 Emesis 600 / 600 Other: Urine Color Yellow Urine Appearance Clear Clear Voiding Methods Urinal Data Completed and Pending Labs on day of discharge: Labs from last 24 hours 11/18/19 11/18/19 11/18/19 06:10 04:30 00:34 WBC RBC Hgb Hct MCV MCH MCHC RDW Plt Count MPV Immature Gran % Neutrophils % Lymphocytes % Monocytes % Eosinophils % Basophils % Absolute Neutrophils Absolute Lymphocytes Absolute Monocytes Absolute Eosinophils Absolute Basophils Differential Comment RBC Morphology PT INR APTT Sodium 137 Potassium 4.7 D Chloride 101 Carbon Dioxide 27.7 Anion Gap 8.3 BUN Creatinine Estimated GFR/1.73 m2 Glucose Hemoglobin A1c Calcium Magnesium TSH 2.48 COVID-19 PCR Pending Nasopharyn COVID-19 PCR Pending Ref Test Perform Site Pending 11/18/19 11/18/19 11/18/19 00:34 00:34 00:34 WBC RBC Hgb Hct MCV MCH MCHC RDW Plt Count MPV Immature Gran % Neutrophils % Lymphocytes % Monocytes % Eosinophils % Basophils % Absolute Neutrophils Absolute Lymphocytes Absolute Monocytes Absolute Eosinophils Absolute Basophils Differential Comment RBC Morphology PT 10.1 INR 1.0 APTT 20.6 L Sodium Potassium Chloride Carbon Dioxide Anion Gap BUN Creatinine Estimated GFR/1.73 m2 Glucose Hemoglobin A1c 6.0 H Calcium Magnesium 1.8 TSH COVID-19 PCR Nasopharyn COVID-19 PCR Ref Test Perform Site 11/18/19 11/18/19 00:34 00:34 WBC 12.49 H RBC 5.23 Hgb 14.6 Hct 42.8 MCV 81.8 MCH 27.9 MCHC 34.1 RDW 12.7 Plt Count 310 MPV 9.5 Immature Gran % 0.4 Neutrophils % 37.6 Lymphocytes % 49.1 Monocytes % 9.0 Eosinophils % 3.4 Basophils % 0.5 Absolute Neutrophils 4.70 Absolute Lymphocytes 6.13 H Absolute Monocytes 1.12 H Absolute Eosinophils 0.42 Absolute Basophils 0.06 Differential Comment Agrees w/ instrument RBC Morphology Normal PT INR APTT Sodium 136 Potassium 2.6 L* Chloride 101 Carbon Dioxide 24.3 Anion Gap 10.7 BUN 13 Creatinine 0.98 Estimated GFR/1.73 m2 >= 60.00 Glucose 140 H Hemoglobin A1c Calcium 9.0 Magnesium TSH COVID-19 PCR Nasopharyn COVID-19 PCR Ref Test Perform Site [facility] Medical History Decreased hearing of left ear (Chronic) Surgical History No significant past surgical history (Acute) Social History Smoking/Tobacco Use Status: Never Alcohol Intake: never Substance use type: does not use Do you feel safe at home: Yes Do you feel safe in your relationship?: Yes
[2019-11-18 23:08] LABS: COVID-19 RT-PCR UVMMC Result Negative (Negative)
== END 2019-11-18 17:55 | disposition home or self-care (01) ==
LOC: ER 03:25 → ICU 04:02
PROVIDERS: Admitting Provider General Practice; Emergency Provider Emergency Medicine; PCP Family Medicine; Visit Provider Internal Medicine
DX: G43.009 Migraine without aura, not intractable, without status migrainosus (principal); H53.2 Diplopia; H50.10 Unspecified exotropia; E87.6 Hypokalemia
CPT/HCPCS: 36415; 70496; 70498; 70553; 80048; 80051; 93005; 96361; 96365; 96375; 99222; 99238; 99255; 99291; U0003; 83036; 83735; 84443; 85025; 85610; 85730; 93010; 99236; G0378; J2270; J2405; J3480; J3490

== ENCOUNTER 2019-11-26 02:31 | Outpatient (CLI) | payer MEDICAID, SELFPAY ==
[2019-12-08 19:20] LABS: Striational(Striated Muscle) A Negative titer (<1:120)
== END 2019-11-26 02:51 ==
PROVIDERS: PCP Family Medicine; Visit Provider Psychiatry & Neurology Neurology
DX: H53.2 Diplopia (principal); G70.00 Myasthenia gravis without (acute) exacerbation
CPT/HCPCS: 36415; 83519; 83520

== ENCOUNTER 2020-02-17 01:14 | Outpatient (CLI) | payer MEDICAID, SELFPAY ==
[2020-02-17] MEDS: Omnipaque 350 MG/ML 100 ML BTL IJ (15:07)
[2020-02-17] MEDS: Normal Saline - Diluent 50 ML VIAL IV (15:08)
[2020-02-17] MEDS: Normal Saline Flush 10 ML SYR IVP (15:08)
--- NOTE | 2020-02-17 15:08 | DI.CT_ITS ---
EXAM: CT CHEST W CLINICAL HISTORY: Myasthenia; thymus tumor?,G70.00 TECHNIQUE: COMPARISON: No exams were available for comparison FINDINGS: CT examination of the chest was performed bolus infusion 70 cc of Omnipaque 350. Images obtained thr ough the upper abdomen show unremarkable appearance of visualized portions of the liver, spleen, panc reas, adrenals, and kidneys. There is no evidence of mediastinal adenopathy. The requisition raises the possibility thymic tumor in a patient with known minus the mediated gravis. The thymus is mildly enlarged with the left lobe measuring about 12 millimeters in thickness and the right lobe measuring about 9 millimeters in thick ness. No gross mass identified. The thymus is of soft tissue attenuation and is only minimally fatt y replaced. Mediastinal vascular structures appear intact. Lungs are clear. No pleural effusion or pleural-base d mass. No axillary or supraclavicular adenopathy. Tracheolaryngeal structures appear intact. IMPRESSION: Borderline to mild enlargement of thymus in a patient in his mid 20s with myasthenia gravis. No foc al mass lesion identified. MRI evaluation may be helpful in further evaluation.
== END 2020-02-17 01:34 ==
PROVIDERS: PCP Family Medicine; Visit Provider Psychiatry & Neurology Neurology
DX: G70.00 Myasthenia gravis without (acute) exacerbation (principal); E23.0 Hypopituitarism
CPT/HCPCS: 71260; J3490